=== PATIENT | female | born 1945 | race Caucasian/White ===

== ENCOUNTER 2018-11-25 18:56 | Emergency (ER) | payer BC, MEDICARE ==
[2018-11-25] MEDS: IBUPROFEN 600 MG TAB PO (21:00)
== END 2018-11-25 22:36 | disposition home or self-care (01) ==
LOC: FTE 22:36
DX: S82.891A Other fracture of right lower leg, initial encounter for closed fracture (principal); W01.0XXA Fall on same level from slipping, tripping and stumbling without subsequent striking against object, initial encounter; Y92.9 Unspecified place or not applicable; Z85.3 Personal history of malignant neoplasm of breast; Z85.89 Personal history of malignant neoplasm of other organs and systems; Z87.891 Personal history of nicotine dependence
CPT/HCPCS: 29515; 73610-RT; 99283-25